=== PATIENT | female | born 1945 | race Caucasian/White ===

== ENCOUNTER 2020-08-22 07:52 | Outpatient (REF) | payer MEDICARE, OTHER, SELFPAY ==
[2020-08-22 08:36] LABS: MANUAL DIFF FLAG NO
[2020-08-22 08:46] LABS: Basophils Percent Auto 0.4 % (0-2); Eosinophils Absolute Auto 0.3 X10*3/uL (0.0-0.4); Hematocrit 36.7 % (37-47); Hemoglobin 11.7 g/dl (12.0-16.0); Imm Gran Abs Auto 0.04 X10*3/uL (0.00-0.03); Imm Gran Pct Auto 0.5 % (0.0-0.4); Lymphocytes Absolute Auto 1.7 X10*3/uL (1.2-4.9); Lymphocytes Percent Auto 21.6 % (20-40); Mean Corpuscular HGB Conc 31.9 g/dl (31.0-35.0); Mean Corpuscular Hemoglobin 28.3 pg (27.0-33.0); Mean Corpuscular Volume 88.9 fL (80-98); Mean Platelet Volume 9.8 fL (9.4-12.3); Monocytes Absolute Auto 0.9 X10*3/uL (0.1-1.2); Monocytes Percent Auto 11.2 % (2-11); Neutrophils Absolute Auto 4.9 X10*3/uL (2.0-8.3); Neutrophils Percent Auto 62.3 % (45-73); Platelet Count 321 X10*3/uL (160-400); Red Blood Count 4.13 X10*6/uL (4.20-5.50); Red Cell Distribution Width 15.3 % (11.0-16.0); White Blood Count 7.8 X10*3/uL (4.8-10.8)
[2020-08-22 09:10] LABS: Estimated Average Glucose 126 mg/dL
[2020-08-22 09:13] LABS: Alanine Aminotransferase 18 U/L (0-31); Anion Gap 13 (12-20); Blood Urea Nitrogen 31 mg/dL (9-16); Carbon Dioxide 27 mmol/L (22-29); Chloride 105 mmol/L (96-108); Estimated Glomerular Filt Rate 35; Glucose Fasting 114 mg/dL (60-99); Iron 47 mcg/dL (30-160); Percent Iron Saturation 15 % (15-50); Potassium 4.5 mmol/l (3.3-5.1); Sodium 140 mmol/L (135-145); Total Iron Binding Capacity 308 mcg/dL (228-428); Unsaturated Iron Binding 261 ug/dL
== END 2020-08-22 07:53 | disposition home or self-care (01) ==
LOC: HO.LAB 07:52
PROVIDERS: PCP Family Medicine; Visit Provider Family Medicine
DX: E11.9 Type 2 diabetes mellitus without complications (principal); I10 Essential (primary) hypertension; D50.9 Iron deficiency anemia, unspecified
CPT/HCPCS: 36415; 80051; 82565; 82947; 83036; 83540; 84460; 84520; 85025

== ENCOUNTER 2021-01-27 07:57 | Outpatient (REF) | payer MEDICARE, OTHER, SELFPAY ==
[2021-01-27 10:16] LABS: MANUAL DIFF FLAG NO
[2021-01-27 10:19] LABS: Basophils Absolute Auto 0.1 X10*3/uL (0.0-0.2); Basophils Percent Auto 0.8 % (0-2); Eosinophils Absolute Auto 0.4 X10*3/uL (0.0-0.4); Eosinophils Percent Auto 4.4 % (0-4); Hematocrit 36.6 % (37-47); Hemoglobin 11.7 g/dl (12.0-16.0); Imm Gran Abs Auto 0.02 X10*3/uL (0.00-0.03); Imm Gran Pct Auto 0.3 % (0.0-0.4); Lymphocytes Absolute Auto 1.8 X10*3/uL (1.2-4.9); Lymphocytes Percent Auto 22.5 % (20-40); Mean Corpuscular Hemoglobin 27.5 pg (27.0-33.0); Mean Corpuscular Volume 86.1 fL (80-98); Mean Platelet Volume 10.1 fL (9.4-12.3); Monocytes Absolute Auto 0.9 X10*3/uL (0.1-1.2); Monocytes Percent Auto 10.8 % (2-11); Neutrophils Absolute Auto 4.9 X10*3/uL (2.0-8.3); Neutrophils Percent Auto 61.2 % (45-73); Platelet Count 322 X10*3/uL (160-400); Red Blood Count 4.25 X10*6/uL (4.20-5.50); Red Cell Distribution Width 15.6 % (11.0-16.0)
[2021-01-27 10:32] LABS: Estimated Average Glucose 131 mg/dL; Hemoglobin A1c % 6.2 %
[2021-01-27 10:54] LABS: Anion Gap 14 (12-20); Blood Urea Nitrogen 23 mg/dL (9-16); Carbon Dioxide 27 mmol/L (22-29); Chloride 104 mmol/L (96-108); Estimated Glomerular Filt Rate 34; Glucose Fasting 110 mg/dL (60-99); Iron 50 mcg/dL (30-160); Percent Iron Saturation 16 % (15-50); Potassium 4.5 mmol/L (3.3-5.1); Sodium 140 mmol/L (135-145); Total Iron Binding Capacity 313 mcg/dL (228-428); Unsaturated Iron Binding 263 ug/dL
[2021-01-27 11:07] LABS: Free T4 (Free Thyroxine) 0.92 ng/dL (0.71-1.85)
== END 2021-01-27 07:58 | disposition home or self-care (01) ==
LOC: HO.10HDL 07:57
PROVIDERS: Visit Provider Family Medicine
DX: I10 Essential (primary) hypertension (principal); E11.9 Type 2 diabetes mellitus without complications; D50.9 Iron deficiency anemia, unspecified
CPT/HCPCS: 36415; 80051; 82565; 82947; 83036; 83540; 84439; 84520; 85025

== ENCOUNTER → 2021-05-11 14:23 | Outpatient (BNVA) | payer MEDICARE, OTHER, SELFPAY | PROVIDERS: PCP Family Medicine; Visit Provider Urology | DX: N20.0 Calculus of kidney (principal); N32.81 Overactive bladder | CPT/HCPCS: 51798; 99212 ==

== ENCOUNTER 2021-06-12 10:13 | Outpatient (REF) | payer MEDICARE, OTHER, SELFPAY ==
--- NOTE | ~2021-06-12 | US_ITS ---
EXAMINATION: US RETROPERITONEAL LIMITED (RENAL ONLY) CLINICAL INFORMATION: Calculus of kidney. COMPARISON: Renals only ultrasound dated 11/23/2019 and 08/04/2018. KUB is dated 04/01/2019 and 03/18/2019. CT abdomen and pelvis without contrast dated 01/05/2019. TECHNIQUE: Real-time imaging of the kidneys. FINDINGS: RIGHT KIDNEY: 10.7 x 4.3 x 4.7 cm (SAG x AP x TRV). The kidney is normal in size, contour, and echogenicity. Renal cortical thickness is normal. There is a 2 x 1.6 x 1.9 cm peripelvic cyst in the lower pole. No renal calculi or hydronephrosis. LEFT KIDNEY: 8.9 x 3.4 x 3.4 cm (SAG x AP x TRV). There is left renal cortical thinning or scarring. There is a 1.1 x 0.9 x 1.3 cm cyst exophytic to the lateral midpole. No renal calculi or hydronephrosis. INCIDENTAL FINDING: There are gallstones in the gallbladder. US/US renal BI IMPRESSION: Small bilateral renal cysts. No stone or hydronephrosis is seen. Left renal cortical thinning or scarring.
== END 2021-06-12 10:14 | disposition home or self-care (01) ==
LOC: HO.US 10:13
PROVIDERS: PCP Family Medicine; Visit Provider Urology
DX: N20.0 Calculus of kidney (principal)
CPT/HCPCS: 76775

== ENCOUNTER → 2021-06-27 10:04 | Outpatient (BNVA) | payer MEDICARE, OTHER, SELFPAY | PROVIDERS: PCP Family Medicine | CPT/HCPCS: Q3014 ==

== ENCOUNTER → 2021-08-01 10:52 | Outpatient (BNVA) | payer MEDICARE, OTHER, SELFPAY | PROVIDERS: PCP Family Medicine | DX: N32.81 Overactive bladder (principal) | CPT/HCPCS: Q3014 ==

== ENCOUNTER 2021-08-03 08:41 | Outpatient (REF) | payer MEDICARE, OTHER, SELFPAY | END 2021-08-03 08:42 | disposition home or self-care (01) | LOC: HO.10HDL 08:41 | PROVIDERS: Nurse Practitioner Family | DX: I25.10 Atherosclerotic heart disease of native coronary artery without angina pectoris (principal) | CPT/HCPCS: 36415; 80048 ==

== ENCOUNTER 2021-08-04 13:04 | Outpatient (REF) | payer MEDICARE, OTHER, SELFPAY | END 2021-08-04 13:05 | disposition home or self-care (01) | LOC: HO.10HDLNP 13:04 | DX: N39.0 Urinary tract infection, site not specified (principal) | CPT/HCPCS: 87086 ==

== ENCOUNTER → 2021-09-29 10:51 | Outpatient (BNVA) | payer MEDICARE, OTHER, SELFPAY | DX: N32.81 Overactive bladder (principal) | CPT/HCPCS: Q3014 ==

== ENCOUNTER 2021-09-30 07:58 | Outpatient (REF) | payer MEDICARE, OTHER, SELFPAY ==
[2021-09-30 09:32] LABS: Anion Gap 13 (12-20); Blood Urea Nitrogen 28 mg/dL (9-16); Carbon Dioxide 27 mmol/L (22-29); Chloride 106 mmol/L (96-108); Estimated Glomerular Filt Rate 37; Glucose Fasting 112 mg/dL (60-99); Potassium 4.7 mmol/L (3.3-5.1); Sodium 141 mmol/L (135-145)
[2021-09-30 09:39] LABS: Estimated Average Glucose 123 mg/dL; Hemoglobin A1c % 5.9 %
[2021-09-30 12:06] LABS: Creatinine Urine 84.67 mg/dL; Microalbum/Creatinine Ratio Ur 125.1 ug/mg cr
== END 2021-09-30 07:59 | disposition home or self-care (01) ==
LOC: HO.LAB 07:58
PROVIDERS: PCP Family Medicine; Visit Provider Family Medicine
DX: N39.0 Urinary tract infection, site not specified (principal); I10 Essential (primary) hypertension; E11.9 Type 2 diabetes mellitus without complications
CPT/HCPCS: 36415; 80051; 82043; 82565; 82947; 83036; 84520; 87086

== ENCOUNTER 2021-10-05 11:19 | Outpatient (REF) | payer MEDICARE, OTHER, SELFPAY ==
[2021-10-05 14:44] LABS: Free T4 (Free Thyroxine) 0.87 ng/dL (0.71-1.85); Thyroid Stimulating Hormone 2.37 uIU/mL (0.32-4.0)
== END 2021-10-05 11:20 | disposition home or self-care (01) ==
LOC: HO.10HDL 11:19
PROVIDERS: Visit Provider Family Medicine
DX: E03.9 Hypothyroidism, unspecified (principal)
CPT/HCPCS: 36415; 84439; 84443

== ENCOUNTER 2021-10-17 08:55 | Outpatient (REF) | payer MEDICARE, OTHER, SELFPAY ==
[2021-10-17 10:34] LABS: Appearance Urine TURBID; Color Urine YELLOW; Glucose Urine UA NEG (NEG); Leukocyte Esterase Urine 2+ (NEG); Nitrite Urine NEG (NEG); UACC Culture Trigger YES; Urine Blood 1+ (NEG); Urine Ketones NEG (NEG); Urine Protein 1+ MG/DL (NEG-TRACE)
[2021-10-17 10:52] LABS: Bacteria Urine 1+ /LPF; Squamous Epithelial Cell Urine 3+ /LPF; WBC Urine TNTC /HPF (0-4)
== END 2021-10-17 08:56 | disposition home or self-care (01) ==
LOC: HO.10HDL 08:55
PROVIDERS: Visit Provider Family Medicine
DX: N39.0 Urinary tract infection, site not specified (principal)
CPT/HCPCS: 81001; 87086

== ENCOUNTER → 2021-12-22 10:29 | Outpatient (BNVA) | payer MEDICARE, OTHER, SELFPAY | DX: N32.81 Overactive bladder (principal) | CPT/HCPCS: Q3014 ==

== ENCOUNTER 2022-02-16 07:43 | Outpatient (REF) | payer MEDICARE, OTHER, SELFPAY ==
--- NOTE | ~2022-02-16 | XR_ITS ---
EXAMINATION: XR chest 2V CLINICAL INFORMATION: Reason for Exam SOB,COPD COMPARISON: Chest radiograph 07/10/2016 TECHNIQUE: 2 views of the chest XR/XR chest 2V FINDINGS/IMPRESSION: Nodular opacities overlying the lung bases relatively symmetrically, which may reflect nipple shadows, however repeat radiographs with nipple markers to ensure these do not reflect pulmonary nodule. No pneumothorax. No pleural effusion. Normal cardiomediastinal silhouette.
--- NOTE | ~2022-02-16 | XR_ITS ---
EXAMINATION: XR lumbar spine 2-3V CLINICAL INFORMATION: Reason for Exam LO BACK PAIN COMPARISON: Lumbar spine radiographs 11/25/2018 TECHNIQUE: 3 views of the lumbar spine XR/XR lumbar spine 2-3V FINDINGS/IMPRESSION: 5 nonrib-bearing lumbar-type vertebral bodies. Vertebral body heights are maintained. Levoconvex curvature of the lumbar spine. Grade 1 retrolisthesis of L2 on L3 and L3 on L4. Advanced degenerative disc disease at L2-L3 and L3-L4 similar to prior. Paravertebral soft tissues are unremarkable. Partially imaged right hip arthroplasty. Partially imaged advanced degenerative changes of the left hip with complete loss of joint space.
[2022-02-16 07:56] LABS: MANUAL DIFF FLAG NO
[2022-02-16 08:30] LABS: Basophils Absolute Auto 0.1 X10*3/uL (0.0-0.2); Basophils Percent Auto 0.6 % (0-2); Eosinophils Absolute Auto 0.4 X10*3/uL (0.0-0.4); Eosinophils Percent Auto 4.8 % (0-4); Hematocrit 38.5 % (37.0-47.0); Hemoglobin 12.1 g/dl (12.0-16.0); Imm Gran Abs Auto 0.03 X10*3/uL (0.00-0.03); Imm Gran Pct Auto 0.4 % (0.0-0.4); Lymphocytes Absolute Auto 1.8 X10*3/uL (1.2-4.9); Lymphocytes Percent Auto 23.9 % (20-40); Mean Corpuscular HGB Conc 31.4 g/dl (31.0-35.0); Mean Corpuscular Hemoglobin 27.8 pg (27.0-33.0); Mean Corpuscular Volume 88.3 fL (80.0-98.0); Mean Platelet Volume 10.3 fL (9.4-12.3); Neutrophils Absolute Auto 4.4 x10*3/uL (2.0-8.3); Neutrophils Percent Auto 57.3 % (45-73); Platelet Count 310 X10*3/uL (160-400); Red Blood Count 4.36 X10*6/uL (4.20-5.50); White Blood Count 7.7 X10*3/uL (4.8-10.8)
[2022-02-16 08:53] LABS: Alanine Aminotransferase 29 U/L (0-31); Alkaline Phosphatase 104 U/L (39-117); Anion Gap 14 (12-20); Aspartate Amino Transferase 17 U/L (5-31); Blood Urea Nitrogen 22 mg/dL (9-16); Calcium 9.3 mg/dL (8.4-10.2); Carbon Dioxide 27 mmol/L (22-29); Chloride 105 mmol/L (96-108); Estimated Glomerular Filt Rate 28; Glucose Random 106 mg/dL (60-115); Potassium 4.6 mmol/L (3.3-5.1); Sodium 141 mmol/L (135-145); Total Protein 7.2 g/dL (6.5-8.0)
[2022-02-16 09:09] LABS: Erythrocyte Sedimentation Rate 62 MM/HR (0-20)
[2022-02-16 09:28] LABS: Ferritin 105 ng/mL (10-250); Free T4 (Free Thyroxine) 0.89 ng/dL (0.71-1.85)
[2022-02-17 14:35] LABS: Anti Nuclear Antibody Screen NEGATIVE (NEGATIVE)
== END 2022-02-16 07:44 | disposition home or self-care (01) ==
LOC: HO.LAB 07:43
PROVIDERS: PCP Family Medicine; Visit Provider Family Medicine
DX: M54.50 Low back pain, unspecified (principal); J44.9 Chronic obstructive pulmonary disease, unspecified; R06.02 Shortness of breath; R53.83 Other fatigue; R63.4 Abnormal weight loss
CPT/HCPCS: 36415; 71046; 72100; 80053; 82378; 82728; 84439; 85025; 85652; 86038; 86039

== ENCOUNTER 2022-02-26 09:38 | Outpatient (REF) | payer MEDICARE, OTHER, SELFPAY ==
--- NOTE | ~2022-02-26 | CT_ITS ---
EXAMINATION: CT ABDOMEN WITHOUT CONTRAST CLINICAL INFORMATION: Weakness, constipation, pain and chronic kidney disease. Rule out abdominal mass. COMPARISON: Previous CT of the abdomen and pelvis, most recent December 2020 and renal ultrasound May 2021. TECHNIQUE: Contiguous axial thin section helical images of the abdomen were performed without contrast. The data set was reformatted in the coronal and sagittal planes and reviewed on an independent workstation. This CT examination was performed using dose optimization techniques as appropriate, variously including the following: *Automated exposure control *Adjustment of mA and/or kV according to patient size (this includes techniques or standardized protocols for targeted exams where dose is matched to indication/reason for exam; i.e. extremities or head) *Use of iterative reconstruction technique DLP: 174 mGy-cm. FINDINGS: LUNG BASES: There is a 1 cm right lower lobe nodule that is stable. The lung bases are otherwise clear. LIVER, GALLBLADDER, BILIARY TREE: The liver is normal appearing. There is a gallstone in the gallbladder. There is no biliary duct dilatation. PANCREAS: Normal. SPLEEN: Normal. ADRENAL GLANDS AND KIDNEYS: The left kidney is smaller than the right. The left kidney measures 6 cm and the right 10 cm in length. There is left renal cortical thinning. There is a 1 cm low-attenuation lesion in the lateral lower left kidney probably representing a cyst that is stable. There is no left hydronephrosis. There is a tiny stone in the upper pole of the right kidney. There is mild right hydronephrosis. Right ureter does not appear dilated and this may represent a mild right UPJ obstruction. This is similar to previous exams. BOWEL LOOPS: There is stool throughout the colon. There is question of wall thickening or possible mass of the proximal right colon. This is seen on the most inferior image only. The visualized small bowel and the stomach appear unremarkable. LYMPH NODES: Normal. VASCULAR: There is evidence of atherosclerotic disease. No aneurysm is seen. BONES: There are degenerative changes of the spine. CT/CT abdomen wo con IMPRESSION: Small left kidney. Small left renal cyst. Small right renal stone. Mild right hydronephrosis. The right ureter does not appear dilated and this may represent mild right UPJ obstruction. This is similar to previous exams. Question wall thickening or possible mass of the proximal right colon on the most inferior image. Stool throughout the colon suggestive of constipation. Gallstone. Stable right lower lobe pulmonary nodule. Fleischner guidelines were followed.
[2022-02-26] MEDS: Barium Sulfate Oral (Vanilla) 450 ML ORAL.SUSP PO (11:27)
== END 2022-02-26 09:39 | disposition home or self-care (01) ==
LOC: HO.CT 09:38
PROVIDERS: Visit Provider Family Medicine
DX: R53.1 Weakness (principal); K59.00 Constipation, unspecified; N18.9 Chronic kidney disease, unspecified; R10.9 Unspecified abdominal pain
CPT/HCPCS: 74150

== ENCOUNTER → 2022-03-19 14:13 | Outpatient (BNVA) | payer MEDICARE, OTHER, SELFPAY | PROVIDERS: PCP Family Medicine; Visit Provider Internal Medicine Gastroenterology | DX: C18.2 Malignant neoplasm of ascending colon (principal) | CPT/HCPCS: 99202 ==

== ENCOUNTER 2022-03-27 10:00 | Outpatient (RCR) | payer MEDICARE, OTHER, SELFPAY ==
--- NOTE | 2022-02-22 12:29 | MHC.PT.EP ---
[facility] [place] Office [place] Office [place] Office [address] Tarah Gayle [address] [phone] F: [phone] F: [phone] F: [phone] F: [phone] Physical Therapy Plan of Care Date of Evaluation: 02/22/22 Date of Surgery: Diagnosis: overactive bladder Assessment: The patient arrived with poor slouched posture, painful movement patterns, and c/o urgency and frequency. She deferred internal exam until next visit. I educated her on what can be found in the pelvic floor. I recommended we begin a bladder log to measure output and look at potential bladder irritants. The patient is showing signs of sinister pathology including back pain, night pain, constant intense new onset of without injury, loss of appetite, feeling fatigued. She has a CT scan on Saturday of her abdomen. I suspect pt has high resting tone layered with PFM weakness, which I will assess next visit. Today I instructed on improving sitting, sleeping, and movement postures to accommodate her pain. Frequency and Duration: The patient will be seen 1x/week x 4 weeks. Short Term Goals: 1. PT to be educated on proper sitting, sleeping posture for pain control 2. Pt to be educated on diaphragmatic breathing Mcfp Goals: 1. Pt to be able to reduce nocturia to less than 5 times/nigh to allow improved sleep 2 Pt to be able to record a bladder log to look for patterns, or triggers for bladder irritation at night. Treatment Plan: Modalities to reduce pain, spasms and effusion. Manual therapy to restore motion and function. Therapeutic exercise to improve strength and flexibility. Neuromuscular re-education for posture and balance. Therapeutic activities to return to functional activities of daily living. Electronically signed by: Charlette Yoder PT DPT Please sign and return to therapist. Thank you for your referral.
== END 2022-06-22 14:52 | disposition home or self-care (01) ==
LOC: HO.PT 10:00
DX: N32.81 Overactive bladder (principal)
CPT/HCPCS: 97112; 97162; 97530

== ENCOUNTER 2022-04-09 07:51 | Day surgery (SDC) | payer MEDICARE, OTHER, SELFPAY ==
[2022-04-04 08:31] VITALS: BMI 23.6
--- NOTE | 2022-04-06 12:57 | HO.ANESPROP2 ---
Documented by User: Gala Carter NP 04/06/22 12:59 HPI - Anesthesia Eval Consult details Narrative: 76yo F for Colonoscopy *Mult med allergies* PMFSH Active Problems Active Problems: All Active Problems (Updated 03/20/22 @ 15:48 by BONNIE Pendleton) Malignant neoplasm of right colon (Acute) Cognitive decline (Acute) UTI (urinary tract infection) (Acute) Renal stones (Acute) Overactive bladder (Acute) Past Medical History Medical History (Updated 04/09/22 @ 08:20 by Vanessa Calle RN) Acute inflammatory neuropathy Anxiety CHF (congestive heart failure) Cognitive decline Constipation Degenerative disc disease Depression Gastritis GERD (gastroesophageal reflux disease) Hypertension Myocardial infarct OA (osteoarthritis) Overactive bladder Panic attack Renal stones Thyroid disease Type 2 diabetes mellitus without complication, without long-term current use of insulin UTI (urinary tract infection) Family History Family History (Updated 03/19/22 @ 14:15 by BONNIE ePndleton) Mother Heart problem Maternal Aunt Heart problem Maternal Aunt Heart problem Other Diabetes Surgical History Surgical History (Updated 04/09/22 @ 08:56 by Vanessa Calle RN) History of cardiac cath History of esophagogastroduodenoscopy (EGD) History of total right hip replacement Hx of cataract extraction Hx of colonoscopy Hx of cystoscopy Hx of lithotripsy Social History Social History Patient Tobacco Use Status: Never used Tobacco Use of substances other than those prescribed or required for medical reasons: No Are you DNR?: Yes Advance Directives: No Advance Directives Information Provided: Yes Recently lost weight without trying: No How much weight loss: 2-13 pounds Nutrition Risks: No Nutritional Risk Meds Allergies Allergy/AdvReac Type Severity Reaction Status Date / Time amoxicillin [Augmentin] Allergy Intermediate rash Verified 04/04/22 08:29 azithromycin [From ZITHROMAX] Allergy Intermediate RASH, Verified 03/19/22 14:14 rash, confusion clarithromycin [From BIAXIN] Allergy Intermediate RASH Verified 03/19/22 14:14 clavulanic acid [Augmentin] Allergy Intermediate rash Verified 04/04/22 08:29 nitrofurantoin Allergy Intermediate ITCHY/RASH Verified 03/19/22 14:14 [From MACROBID] Sulfa (Sulfonamide Allergy Intermediate Rash Verified 04/04/22 08:29 Antibiotics) [SULFA (SULFONAMIDE ANTIBIOTICS)] trimethoprim [From BACTRIM] Allergy Intermediate RASH Verified 03/19/22 14:14 chlorzoxazone Allergy Unknown UNKNOWN Verified 03/19/22 14:14 [From PARAFON FORTE DSC] levofloxacin [From LEVAQUIN] Allergy Unknown UNKNOWN Verified 03/19/22 14:14 From LEXAPRO Allergy Unknown UNKNOWN Uncoded 03/19/22 14:14 Home Medications Medication Instructions Recorded Confirmed Last Taken Type amlodipine 5 mg tablet 5 mg PO DAILY 08/01/21 Unknown History blood sugar diagnostic (OneTouch #10 ea 08/01/21 Unknown History Verio test strips) levothyroxine 150 mcg tablet 150 mcg PO DAILY 08/01/21 Unknown History metoprolol tartrate 25 mg tablet 25 mg PO BID 08/01/21 Unknown History bupropion HCl 150 mg 24 hr tablet, 150 mg PO QAM 12/22/21 Unknown History extended release gabapentin 100 mg capsule 200 mg PO BEDTIME 12/22/21 Unknown History meloxicam 7.5 mg tablet 7.5 mg PO DAILY 03/19/22 Unknown History polyethylene glycol 3350 17 17 g PO DAILY PRN 03/19/22 Unknown History gram/dose oral powder (Miralax) Exam Exam Date and Time: April 06, 2022 1257 Height,Weight and Vital Signs: Height 5 ft 6 in Weight 66.224 kg Pertinent Lab Results Pertinent Lab Results: Laboratory Tests 02/16/22 02/16/22 07:55 07:55 WBC 7.7 Hgb 12.1 Hct 38.5 Plt Count 310 Sodium 141 Potassium 4.6 Chloride 105 Carbon Dioxide 27 BUN 22 H Creatinine 1.77 H Assessment and Plan Assessment Anesthesia Assessment: Chart Reviewed Documented by User: Nicky Rojas MD 04/09/22 09:08 [facility] Past Medical History Medical History (Updated 04/09/22 @ 08:20 by Vanessa Calle RN) Acute inflammatory neuropathy Anxiety CHF (congestive heart failure) Cognitive decline Constipation Degenerative disc disease Depression Gastritis GERD (gastroesophageal reflux disease) Hypertension Myocardial infarct OA (osteoarthritis) Overactive bladder Panic attack Renal stones Thyroid disease Type 2 diabetes mellitus without complication, without long-term current use of insulin UTI (urinary tract infection) Family History Family History (Updated 03/19/22 @ 14:15 by BONNIE Pendleton) Mother Heart problem Maternal Aunt Heart problem Maternal Aunt Heart problem Other Diabetes Family history of problems with anesthesia: No Surgical History Surgical History (Updated 04/09/22 @ 08:56 by Vanessa Calle RN) History of cardiac cath History of esophagogastroduodenoscopy (EGD) History of total right hip replacement Hx of cataract extraction Hx of colonoscopy Hx of cystoscopy Hx of lithotripsy History of Problems with Anesthesia: No Social History Social History Patient Tobacco Use Status: Never used Tobacco Use of substances other than those prescribed or required for medical reasons: No Are you DNR?: Yes Advance Directives: No Advance Directives Information Provided: Yes Recently lost weight without trying: No How much weight loss: 2-13 pounds Nutrition Risks: No Nutritional Risk Meds Allergies Allergy/AdvReac Type Severity Reaction Status Date / Time amoxicillin [Augmentin] Allergy Intermediate rash Verified 04/04/22 08:29 azithromycin [From ZITHROMAX] Allergy Intermediate RASH, Verified 03/19/22 14:14 rash, confusion clarithromycin [From BIAXIN] Allergy Intermediate RASH Verified 03/19/22 14:14 clavulanic acid [Augmentin] Allergy Intermediate rash Verified 04/04/22 08:29 nitrofurantoin Allergy Intermediate ITCHY/RASH Verified 03/19/22 14:14 [From MACROBID] Sulfa (Sulfonamide Allergy Intermediate Rash Verified 04/04/22 08:29 Antibiotics) [SULFA (SULFONAMIDE ANTIBIOTICS)] trimethoprim [From BACTRIM] Allergy Intermediate RASH Verified 03/19/22 14:14 chlorzoxazone Allergy Unknown UNKNOWN Verified 03/19/22 14:14 [From PARAFON FORTE DSC] levofloxacin [From LEVAQUIN] Allergy Unknown UNKNOWN Verified 03/19/22 14:14 From LEXAPRO Allergy Unknown UNKNOWN Uncoded 03/19/22 14:14 Home Medications Medication Instructions Recorded Confirmed Last Taken Type amlodipine 5 mg tablet 5 mg PO DAILY 08/01/21 Unknown History blood sugar diagnostic (OneTouch #10 ea 08/01/21 Unknown History Verio test strips) levothyroxine 150 mcg tablet 150 mcg PO DAILY 08/01/21 Unknown History metoprolol tartrate 25 mg tablet 25 mg PO BID 08/01/21 Unknown History bupropion HCl 150 mg 24 hr tablet, 150 mg PO QAM 12/22/21 Unknown History extended release gabapentin 100 mg capsule 200 mg PO BEDTIME 12/22/21 Unknown History meloxicam 7.5 mg tablet 7.5 mg PO DAILY 03/19/22 Unknown History polyethylene glycol 3350 17 17 g PO DAILY PRN 03/19/22 Unknown History gram/dose oral powder (Miralax) Exam Airway Mallampati Class: II TM Dist: >3cm Neck ROM: Full Heart: rrr Lungs: cta Assessment and Plan Assessment Anesthesia Assessment: Anesthesia Plan Discussed Final Anesthetic Review Family History of Problems with Anesthesia: No History of Problems with Anesthesia: No NPO: Yes ASA Class: III Final Preanesthetic Review: No Changes in Pt Med Stat, Meds/Allgs Chart Reviewed and Consent Obtained/Reviewed Patient Risk: Intermediate Procedure Risk: Intermediate Anesthetic Plan Anesthetic Plan: MAC: Disposition: Standard PACU
[2022-04-09 08:21] VITALS: BMI 25.5
--- NOTE | 2022-04-09 08:36 | MHC.SHP ---
Pre-Procedural Eval Section A Date of Service: 04/09/22 The patient is an INPATIENT: No Changes since office visit: Yes Patient answered all questions; No Cold of Flu in the past 2 weeks, No New Medical Problems and No Changes in Medication The History & Physical has been completed within 30 days and I have reviewed it.: Yes Section B Chief Complaint: abnormal CT scan of the colon Details of Present Illness: abnormal CT scan of the colon Allergies: Allergies Allergy/AdvReac Type Severity Reaction Status Date / Time amoxicillin [Augmentin] Allergy Intermediate rash Verified 04/04/22 08:29 azithromycin [From ZITHROMAX] Allergy Intermediate RASH, Verified 03/19/22 14:14 rash, confusion clarithromycin [From BIAXIN] Allergy Intermediate RASH Verified 03/19/22 14:14 clavulanic acid [Augmentin] Allergy Intermediate rash Verified 04/04/22 08:29 nitrofurantoin Allergy Intermediate ITCHY/RASH Verified 03/19/22 14:14 [From MACROBID] Sulfa (Sulfonamide Allergy Intermediate Rash Verified 04/04/22 08:29 Antibiotics) [SULFA (SULFONAMIDE ANTIBIOTICS)] trimethoprim [From BACTRIM] Allergy Intermediate RASH Verified 03/19/22 14:14 chlorzoxazone Allergy Unknown UNKNOWN Verified 03/19/22 14:14 [From PARAFON FORTE DSC] levofloxacin [From LEVAQUIN] Allergy Unknown UNKNOWN Verified 03/19/22 14:14 From LEXAPRO Allergy Unknown UNKNOWN Uncoded 03/19/22 14:14 Plan I have reviewed the history and physical and performed a pertinent physical examination on my patient. No changes have occurred unless specified.
[2022-04-09 08:57] VITALS: BP 179/84; PULSE 81; RESP 16; TEMP 36.4; O2SAT 99
--- NOTE | 2022-04-09 09:04 | W.PM.OPN ---
Operative Note Operative Note Date of Service: 04/09/22 Narrative: Pre-op diagnosis: abnormal CT scan of the colon Post-op diagnosis:?other (Prominent ileocecal valve, cecal AVM, diverticulosis, hemorrhoids) Procedure: COLONOSCOPY TILL CECUM WITH BIOPSIES AND APC OF CECAL AVMS Consent: Indications for the procedure and potential complications of bleeding, perforation, reaction to medications and missed diagnosis were discussed with the patient and informed consent was obtained. Instrument: Olympus PCF H 190 L variable stiffness pediatric colonoscope Monitoring: Vital signs and clinical assessment, intermittent blood pressure monitoring, continuous EKG monitoring, Pulse oximetry and Carbon Dioxide monitoring were done throughout the procedure. Colon withdrawl time was 20 minutes. Procedure: The patient was placed in the left lateral decubitis position and pre-procedure medications were administered. After a digital rectal examination of the ano-rectum, the video colonoscope was inserted into the rectum and advanced through the colon to the cecum. The colonoscope was slowly withdrawn in a retrograde panoramic fashion and the colon mucosa was carefully examined including a retroflexed view of the rectum. Findings and interventions are described below. Procedure Difficulty: Without difficulty Findings: Terminal Ileum:? Distal 7-8 cm was examined and appeared normal. Cecum:? 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 Prominent ICV valve without clear adenomatous change - multiple biopsies were obtained. Ascending Colon:? Examined with multiple passes of the scope and appeared normal Transverse Colon:? Normal Descending Colon:? Moderate diverticulosis Sigmoid Colon:? Severe diverticulosis with luminal narrowing Rectum:? Normal Ano-rectum:? Moderate internal hemorrhoids Colon preparation:? Good? 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 Prominent ICV valve without clear adenomatous change - multiple biopsies were obtained. No polyps were detected Moderate diverticulosis seen in the left colon Moderate hemorrhoids on retroflexed exam. Plan: Await pathology results Patient has an appointment on 06/01/22 in the [facility] with Dr Rios. Repeat Colonoscopy interval based on path results - in 3-5 years if polyps are adenomatous and 10 years if polyps are hyperplastic. Diverticulosis handout was given in the discharge area. Pt's daughter was called x 2 at patient's request to review colonoscopy results and LMTCB Surgeon: Ciera Fletcher MD Anesthesia:?MAC (DR Robledo) Was an Polysomnographic Tech used for this Procedure?:?No Polysomnographic Tech:?Anushka Gay Estimated blood loss (mL):?0 Pathology:?other ( A. ileocecal valve bxs) Condition:?stable Disposition:?PACU
[2022-04-09 09:06] LABS: Glucose, Whole Blood 117 mg/dL (60-115)
[2022-04-09] MEDS: Lactated Ringers 1,000 ML 100 ML IVCONT (09:12)
[2022-04-09 09:49] VITALS: BP 133/60; PULSE 66; RESP 16; TEMP 36.2; O2SAT 99
[2022-04-09 10:04] VITALS: BP 153/69; PULSE 73; RESP 16; TEMP 36.2; O2SAT 97
== END 2022-04-09 10:54 | disposition home or self-care (01) ==
PROVIDERS: PCP Family Medicine; Visit Provider Internal Medicine Gastroenterology
PROC: 0DJD8ZZ Inspection of Lower Intestinal Tract, Via Natural or Artificial Opening Endoscopic (ICD-10-PCS; CPT 45378; principal; 2022-04-09 09:20)
DX: C18.2 Malignant neoplasm of ascending colon (principal); R97.0 Elevated carcinoembryonic antigen [CEA]; K55.21 Angiodysplasia of colon with hemorrhage; K63.89 Other specified diseases of intestine; K57.30 Diverticulosis of large intestine without perforation or abscess without bleeding; K64.8 Other hemorrhoids; K21.9 Gastro-esophageal reflux disease without esophagitis; I50.9 Heart failure, unspecified; I25.2 Old myocardial infarction; I51.81 Takotsubo syndrome; N32.81 Overactive bladder; E11.9 Type 2 diabetes mellitus without complications; R41.81 Age-related cognitive decline; Z79.84 Long term (current) use of oral hypoglycemic drugs; Z87.442 Personal history of urinary calculi; Z88.0 Allergy status to penicillin; Z88.1 Allergy status to other antibiotic agents; Z88.2 Allergy status to sulfonamides
CPT/HCPCS: 45380; 45382; 82947; 88305

== ENCOUNTER → 2022-05-28 09:24 | Outpatient (BNVA) | payer MEDICARE, OTHER, SELFPAY | PROVIDERS: PCP Family Medicine; Visit Provider Surgery | DX: M00.9 Pyogenic arthritis, unspecified (principal); Z96.652 Presence of left artificial knee joint | CPT/HCPCS: 99202 ==

== ENCOUNTER → 2022-06-01 08:28 | Outpatient (BNVA) | payer MEDICARE, OTHER, SELFPAY | PROVIDERS: PCP Ophthalmology Retina Specialist; Visit Provider Internal Medicine Gastroenterology | DX: K52.82 Eosinophilic colitis (principal) | CPT/HCPCS: Q3014 ==

== ENCOUNTER 2022-06-13 08:26 | Outpatient (REF) | payer MEDICARE, OTHER, SELFPAY ==
[2022-06-13 10:22] LABS: MANUAL DIFF FLAG NO
[2022-06-13 10:31] LABS: Basophils Absolute Auto 0.1 X10*3/uL (0.0-0.2); Basophils Percent Auto 0.9 % (0-2); Eosinophils Absolute Auto 0.7 X10*3/uL (0.0-0.4); Eosinophils Percent Auto 10.6 % (0-4); Hematocrit 35.2 % (37.0-47.0); Hemoglobin 11.2 g/dl (12.0-16.0); Imm Gran Abs Auto 0.02 X10*3/uL (0.00-0.03); Imm Gran Pct Auto 0.3 % (0.0-0.4); Lymphocytes Absolute Auto 1.7 X10*3/uL (1.2-4.9); Lymphocytes Percent Auto 25.3 % (20-40); Mean Corpuscular HGB Conc 31.8 g/dl (31.0-35.0); Mean Corpuscular Hemoglobin 28.3 pg (27.0-33.0); Mean Corpuscular Volume 88.9 fL (80.0-98.0); Mean Platelet Volume 10.1 fL (9.4-12.3); Monocytes Absolute Auto 0.8 X10*3/uL (0.1-1.2); Monocytes Percent Auto 11.5 % (2-11); Neutrophils Absolute Auto 3.4 x10*3/uL (2.0-8.3); Neutrophils Percent Auto 51.4 % (45-73); Platelet Count 311 X10*3/uL (160-400); Red Blood Count 3.96 X10*6/uL (4.20-5.50); Red Cell Distribution Width 14.7 % (11.0-16.0); White Blood Count 6.5 X10*3/uL (4.8-10.8)
[2022-06-13 10:59] LABS: Alanine Aminotransferase 21 U/L (0-31); Albumin Level 3.9 g/dL (3.5-5.0); Alkaline Phosphatase 87 U/L (39-117); Anion Gap 13 (12-20); Aspartate Amino Transferase 17 U/L (5-31); Bilirubin Total 0.7 mg/dL (0.0-1.0); Blood Urea Nitrogen 22 mg/dL (9-16); Calcium 8.8 mg/dL (8.4-10.2); Carbon Dioxide 24 mmol/L (22-29); Chloride 108 mmol/L (96-108); Estimated Glomerular Filt Rate 32; Glucose Random 125 mg/dL (60-115); Potassium 4.2 mmol/L (3.3-5.1); Sodium 141 mmol/L (135-145); Total Protein 6.9 g/dL (6.5-8.0)
[2022-06-13 11:09] LABS: Erythrocyte Sedimentation Rate 59 MM/HR (0-20)
[2022-06-13 11:12] LABS: Free T4 (Free Thyroxine) 1.02 ng/dL (0.71-1.85)
== END 2022-06-13 08:27 | disposition home or self-care (01) ==
LOC: HO.10HDL 08:26
PROVIDERS: Visit Provider Family Medicine
DX: R53.83 Other fatigue (principal); E03.9 Hypothyroidism, unspecified; I10 Essential (primary) hypertension
CPT/HCPCS: 36415; 80053; 84439; 85025; 85652

== ENCOUNTER → 2022-06-27 13:54 | Outpatient (BNVA) | payer MEDICARE, OTHER, SELFPAY | PROVIDERS: PCP Family Medicine; Visit Provider Psychiatry & Neurology Neurology | DX: G47.00 Insomnia, unspecified (principal); R41.89 Other symptoms and signs involving cognitive functions and awareness; M19.90 Unspecified osteoarthritis, unspecified site; R52 Pain, unspecified; Z79.899 Other long term (current) drug therapy | CPT/HCPCS: 99202 ==

== ENCOUNTER 2022-07-04 08:19 | Outpatient (REF) | payer MEDICARE, OTHER, SELFPAY ==
--- NOTE | ~2022-07-04 | CT_ITS ---
EXAMINATION: CT HEAD WITHOUT CONTRAST CLINICAL INFORMATION: Signs and symptoms or abnormal cognitive function and awareness COMPARISON: None TECHNIQUE: Contiguous axial imaging was performed from the skull base to vertex without intravenous administration of contrast. This CT examination was performed using dose optimization techniques as appropriate, variously including the following: *Automated exposure control *Adjustment of mA and/or kV according to patient size (this includes techniques or standardized protocols for targeted exams where dose is matched to indication/reason for exam; i.e. extremities or head) *Use of iterative reconstruction technique DLP: 620 mGy-cm FINDINGS: There is no evidence of acute intracranial hemorrhage or territorial infarction. No abnormal mass effect or midline shift is seen. Silver to white matter differentiation is well preserved. No extra-axial fluid collections are identified. The ventricles are normal in size. There is no abnormal attenuation within the brain parenchyma. The osseous structures and soft tissues are normal. The mastoid air cells and visualized portions of the paranasal sinuses are well aerated. CT/CT head/brain wo con IMPRESSION: No acute intracranial process seen.
[2022-07-04 10:13] LABS: Folate 5.7 ng/mL (> or = 4.0); Vitamin B12 305 pg/mL (200-900)
== END 2022-07-04 08:20 | disposition home or self-care (01) ==
LOC: HO.CT 08:19
PROVIDERS: PCP Family Medicine; Visit Provider Psychiatry & Neurology Neurology
DX: R41.89 Other symptoms and signs involving cognitive functions and awareness (principal)
CPT/HCPCS: 36415; 70450; 82607; 82746

== ENCOUNTER 2023-03-01 10:03 | Outpatient (REF) | payer MEDICARE, OTHER, SELFPAY ==
[2023-03-01 10:36] LABS: MANUAL DIFF FLAG NO
[2023-03-01 10:53] LABS: Basophils Absolute Auto 0.1 X10*3/uL (0.0-0.2); Basophils Percent Auto 0.8 % (0-2); Eosinophils Absolute Auto 0.3 X10*3/uL (0.0-0.4); Eosinophils Percent Auto 3.9 % (0-4); Hematocrit 37.9 % (37.0-47.0); Hemoglobin 12.1 g/dl (12.0-16.0); Imm Gran Abs Auto 0.02 X10*3/uL (0.00-0.03); Imm Gran Pct Auto 0.3 % (0.0-0.4); Lymphocytes Absolute Auto 1.8 X10*3/uL (1.2-4.9); Lymphocytes Percent Auto 24.2 % (20-40); Mean Corpuscular HGB Conc 31.9 g/dl (31.0-35.0); Mean Corpuscular Hemoglobin 28.4 pg (27.0-33.0); Mean Platelet Volume 9.6 fL (9.4-12.3); Monocytes Absolute Auto 0.8 X10*3/uL (0.1-1.2); Neutrophils Absolute Auto 4.4 x10*3/uL (2.0-8.3); Neutrophils Percent Auto 59.8 % (45-73); Platelet Count 329 X10*3/uL (160-400); Red Blood Count 4.26 X10*6/uL (4.20-5.50); Red Cell Distribution Width 14.8 % (11.0-16.0); White Blood Count 7.4 X10*3/uL (4.8-10.8)
[2023-03-01 11:24] LABS: Estimated Average Glucose 134 mg/dL; Hemoglobin A1C 149.6222 umol/L; Hemoglobin A1c % 6.3 %
[2023-03-01 11:39] LABS: Anion Gap 14 (12-20); Blood Urea Nitrogen 25 mg/dL (9-16); Carbon Dioxide 25 mmol/L (22-29); Chloride 107 mmol/L (96-108); Estimated Glomerular Filt Rate 25; Glucose Fasting 106 mg/dL (60-99); Iron 64 mcg/dL (30-160); Percent Iron Saturation 21 % (15-50); Sodium 141 mmol/L (135-145); Total Iron Binding Capacity 309 mcg/dL (228-428); Unsaturated Iron Binding 245 ug/dL
[2023-03-01 12:08] LABS: Free T4 (Free Thyroxine) 1.07 ng/dL (0.71-1.85)
== END 2023-03-01 10:04 | disposition home or self-care (01) ==
LOC: HO.10HDL 10:03
PROVIDERS: Visit Provider Family Medicine
DX: I10 Essential (primary) hypertension (principal); E11.9 Type 2 diabetes mellitus without complications; D50.9 Iron deficiency anemia, unspecified; E03.9 Hypothyroidism, unspecified
CPT/HCPCS: 36415; 80051; 82565; 82947; 83036; 83540; 84439; 84520; 85025

== ENCOUNTER → 2023-04-04 08:32 | Outpatient (REF) | payer MEDICARE, OTHER, SELFPAY ==
--- NOTE | 2023-04-04 08:38 | CA_ITS ---
Transthoracic Echocardiogram Patient (Last, First, Middle): Anastasiya Conner A Gender: Female Date of : 1945 Age: 77 Procedure Date: 04/04/2023 Procedure Type: Transthoracic Echocardiogram Location: OP Height: 162.56 cm Weight: 67.59 kg BSA: 1.73 m2 Heart Rate: 72 bpm BP: 155 / 80 mmHg Insole Department Worker: KATERINE Referring MD: Louis Barrow MD Symptoms: R06.02 SOB R01.1 CA MURMUR, WORSNING Study Quality: Fair ECG Rhythm: Arrhythmia Conclusions: - The left ventricular systolic function is normal. The calculated ejection fraction is 55% by biplane method. - E/E prime ratio is >15, consistent with elevated filling pressures. Evidence suggests grade I (mild) diastolic dysfunction. - There is mild to moderate aortic valve stenosis. - There is mild mitral annular calcification. Findings Left Ventricle Normal left ventricular cavity size. There is normal left ventricular wall thickness. The left ventricular systolic function is normal. The calculated ejection fraction is 55% by biplane method. There is no evidence of regional wall motion abnormalities. E/E prime ratio is >15, consistent with elevated filling pressures. Evidence suggests grade I (mild) diastolic dysfunction. Right Ventricle Normal right ventricular cavity size and systolic function. Atria The left atrium is mildly dilated. The right atrium is normal in size. Aortic Valve The aortic valve was not well visualized. There is moderate calcification of the aortic valve. There is mild to moderate aortic valve stenosis. The mean gradient is 11 mmHg. The aortic valve area is 1.40 cm2. There is trace (trivial) aortic valve regurgitation. Dimensionless index 0.4. Mitral Valve There is mild mitral annular calcification. There is trace mitral valve regurgitation. There is no mitral valve stenosis. Pulmonic Valve There is trace pulmonic valve regurgitation. Tricuspid Valve There is trace tricuspid valve regurgitation. There is no evidence of pulmonary hypertension. Great Vessels The asc aorta is normal in size. Venous The inferior vena cava is normal in size and collapses greater than 50% with inspiration. Pericardium/Pleural There is no evidence of pericardial effusion. Prior Study Comparison No significant change compared to prior study dated: 01/13/2018. Measurements 2D Linear Measurements IVSd: 0.59 0.6-0.9/0.6-1.0 cm LVIDd: 4.76 3.9-5.3/4.2-5.9 cm LVIDd Index: 2.75 2.4-3.2/2.2-3.1 cm/m2 LVIDs: 4.01 2.0-3.6 cm LVPWd: 0.89 0.7-1.1 cm LA Diam: 3.80 2.7-3.8/3.0-4.0 cm LAIDs Index: 2.20 1.5-2.3 cm/m2 LV Mass: 140.89 67-162/88-224 g LV Mass Index: 81.44 43-95/49-115 g/m2 LVOT Diam: 2.10 3.0+(-)1.3 cm 2D Systolic Function EF 4C: 50.60 >55% EF 2C: 59.40 >55% EF BiP: 54.60 >55% Mitral Valve MV Pk E: 1.07 MV PK A: 1.07 MV Decel Time: 191.00 E/A: 1.00 E'Lateral: 5.77 E'Medial: 6.09 E/E' Med: 17.60 E/E' Lat: 18.50 PHT: 56.00 MVA PHT: 3.93 Decel [place]: 5.59 Aortic Valve AoV Pk Chet: 2.19 AoV Mn Chet: 1.59 AoV VTI: 0.60 AoV Pk Grad: 19.00 Aov Mn Grad: 11.00 BEBE Cont.VTI: 1.40 AI Pk Chet: 3.63 AI [place]: 2.34 LVOT LVOT Pk Chet: 0.92 LVOT Mn Chet: 0.63 LVOT VTI: 0.24 LVOT Pk Grad: 3.00 LVOT Mn Grad: 2.00 LVOT Diam: 2.10 LVOT Area: 3.46 Diastolic Function MV Pk E: 1.07 MV Pk A: 1.07 E/A: 1.00 E'Medial: 6.09 E/E' Med: 17.60 E' Laterial: 5.77 E/E' Lat: 18.50 Right Ventricle TAPSE (mm): 30.80 TVS' Chet: 12.40 Tricuspid Valve TR Pk Chet: 2.28 TR Pk Grad: 21.00 RA Press: 3.00 RVSP: 24.00 Great Vessels Aorta Sinus of Valsalva: 3.50 2.0-3.5 cm Ao Asc: 3.00 2.1-3.4 cm Pulmonary Valve PV Pk Chet: 1.00 Peak PV Grad: 4.00 Updated in Other Vendor System with Status of Final Tulio Hensley MD electronically signed on 04/04/2023 12:57:15 PM with status of Final
== END ==
LOC: HO.CARD 08:32
PROVIDERS: PCP Family Medicine; Visit Provider Family Medicine
DX: R01.1 Cardiac murmur, unspecified (principal); R06.02 Shortness of breath
CPT/HCPCS: 93306

== ENCOUNTER 2023-09-14 08:35 | Outpatient (REF) | payer MEDICARE, MEDICAID, SELFPAY ==
[2023-09-14 08:53] LABS: MANUAL DIFF FLAG NO
[2023-09-14 09:09] LABS: Basophils Absolute Auto 0.1 X10*3/uL (0.0-0.2); Basophils Percent Auto 0.7 % (0-2); Eosinophils Absolute Auto 0.3 X10*3/uL (0.0-0.4); Eosinophils Percent Auto 4.3 % (0-4); Hematocrit 34.9 % (37.0-47.0); Hemoglobin 11.4 g/dl (12.0-16.0); Imm Gran Abs Auto 0.03 X10*3/uL (0.00-0.03); Imm Gran Pct Auto 0.4 % (0.0-0.4); Lymphocytes Absolute Auto 2.3 X10*3/uL (1.2-4.9); Lymphocytes Percent Auto 30.3 % (20-40); Mean Corpuscular HGB Conc 32.7 g/dl (31.0-35.0); Mean Corpuscular Hemoglobin 28.4 pg (27.0-33.0); Mean Platelet Volume 9.5 fL (9.4-12.3); Monocytes Absolute Auto 0.8 X10*3/uL (0.1-1.2); Neutrophils Absolute Auto 4.1 x10*3/uL (2.0-8.3); Neutrophils Percent Auto 53.3 % (45-73); Platelet Count 321 X10*3/uL (160-400); Red Blood Count 4.01 X10*6/uL (4.20-5.50); Red Cell Distribution Width 15.1 % (11.0-16.0); White Blood Count 7.6 X10*3/uL (4.8-10.8)
[2023-09-14 09:26] LABS: Estimated Average Glucose 123 mg/dL; Hemoglobin A1c % 5.9 % (<6.0)
[2023-09-14 09:39] LABS: Anion Gap 17 (12-20); Blood Urea Nitrogen 24 mg/dL (9-16); Carbon Dioxide 22 mmol/L (22-29); Chloride 105 mmol/L (96-108); Estimated Glomerular Filt Rate 30; Glucose Fasting 114 mg/dL (60-99); Iron 49 mcg/dL (30-160); Percent Iron Saturation 18 % (15-50); Potassium 4.2 mmol/L (3.3-5.1); Sodium 140 mmol/L (135-145); Total Iron Binding Capacity 280 mcg/dL (228-428); Unsaturated Iron Binding 231 ug/dL
== END 2023-09-14 08:36 | disposition home or self-care (01) ==
LOC: HO.LAB 08:35
PROVIDERS: PCP Family Medicine; Visit Provider Family Medicine
DX: I10 Essential (primary) hypertension (principal); E11.9 Type 2 diabetes mellitus without complications; D50.8 Other iron deficiency anemias
CPT/HCPCS: 36415; 80051; 82565; 82947; 83036; 83540; 84520; 85025

== ENCOUNTER 2024-01-24 08:09 | Outpatient (REF) | payer MEDICARE, MEDICAID, SELFPAY ==
[2024-01-24 12:11] LABS: Estimated Average Glucose 126 mg/dL
[2024-01-24 12:29] LABS: Creatinine Urine 80.15 mg/dL; Microalbum/Creatinine Ratio Ur 49.9 ug/mg cr (<30)
[2024-01-24 13:09] LABS: Blood Urea Nitrogen 28 mg/dL (9-16); Estimated Glomerular Filt Rate 29; Glucose Fasting 115 mg/dL (60-99)
[2024-01-24 13:13] LABS: Free T4 (Free Thyroxine) 0.74 ng/dL (0.71-1.85)
== END 2024-01-24 08:10 | disposition home or self-care (01) ==
LOC: HO.10HDL 08:09
PROVIDERS: Visit Provider Family Medicine
DX: E11.9 Type 2 diabetes mellitus without complications (principal); N18.30 Chronic kidney disease, stage 3 unspecified; E03.9 Hypothyroidism, unspecified
CPT/HCPCS: 36415; 82043; 82565; 82570; 82947; 83036; 84439; 84520

== ENCOUNTER 2024-08-29 08:25 | Outpatient (REF) | payer MEDICARE, OTHER, SELFPAY ==
[2024-08-29 08:37] LABS: MANUAL DIFF FLAG NO
[2024-08-29 09:31] LABS: Basophils Absolute Auto 0.1 X10*3/uL (0.0-0.2); Basophils Percent Auto 0.6 % (0-2); Eosinophils Absolute Auto 0.4 X10*3/uL (0.0-0.4); Eosinophils Percent Auto 4.7 % (0-4); Hemoglobin 11.8 g/dl (12.0-16.0); Imm Gran Abs Auto 0.04 X10*3/uL (0.00-0.03); Imm Gran Pct Auto 0.5 % (0.0-0.4); Lymphocytes Absolute Auto 2.3 X10*3/uL (1.2-4.9); Lymphocytes Percent Auto 28.8 % (20-40); Mean Corpuscular HGB Conc 31.9 g/dl (31.0-35.0); Mean Corpuscular Hemoglobin 28.3 pg (27.0-33.0); Mean Corpuscular Volume 88.7 fL (80.0-98.0); Mean Platelet Volume 9.8 fL (9.4-12.3); Monocytes Absolute Auto 1.1 X10*3/uL (0.1-1.2); Neutrophils Absolute Auto 4.3 x10*3/uL (2.0-8.3); Neutrophils Percent Auto 52.4 % (45-73); Platelet Count 368 X10*3/uL (160-400); Red Blood Count 4.17 X10*6/uL (4.20-5.50); Red Cell Distribution Width 15.5 % (11.0-16.0); White Blood Count 8.1 X10*3/uL (4.8-10.8)
[2024-08-29 09:47] LABS: Estimated Average Glucose 126 mg/dL; Hemoglobin A1C 124.2134 umol/L
== END 2024-08-29 08:26 | disposition home or self-care (01) ==
LOC: HO.LAB 08:25
PROVIDERS: PCP Family Medicine; Visit Provider Family Medicine
DX: E11.9 Type 2 diabetes mellitus without complications (principal); E03.9 Hypothyroidism, unspecified; R53.83 Other fatigue
CPT/HCPCS: 36415; 80053; 83036; 83540; 84439; 84443; 85025

== ENCOUNTER 2024-09-04 09:19 | Outpatient (REF) | payer MEDICARE, OTHER, SELFPAY ==
[2024-09-04 12:10] LABS: Alanine Aminotransferase 14 U/L (0-31); Albumin Level 3.9 g/dL (3.5-5.0); Alkaline Phosphatase 99 U/L (39-117); Anion Gap 13 (12-20); Aspartate Amino Transferase 16 U/L (5-31); Blood Urea Nitrogen 20 mg/dL (9-16); Calcium 9.5 mg/dL (8.4-10.2); Carbon Dioxide 24 mmol/L (22-29); Chloride 105 mmol/L (96-108); Estimated Glomerular Filt Rate 32; Glucose Fasting 110 mg/dL (60-99); Iron 60 mcg/dL (30-160); Percent Iron Saturation 19 % (15-50); Potassium 4.2 mmol/L (3.3-5.1); Sodium 138 mmol/L (135-145); Total Iron Binding Capacity 308 mcg/dL (228-428); Total Protein 7.7 g/dL (6.5-8.0); Unsaturated Iron Binding 248 ug/dL
[2024-09-04 12:11] LABS: Free T4 (Free Thyroxine) 0.83 ng/dL (0.71-1.85); Thyroid Stimulating Hormone 7.57 uIU/mL (0.32-4.0)
== END 2024-09-04 09:20 | disposition home or self-care (01) ==
LOC: HO.10HDL 09:19
PROVIDERS: Visit Provider Family Medicine
DX: Z13.89 Encounter for screening for other disorder (principal)
CPT/HCPCS: 36415; 80053; 83540; 84439; 84443

== ENCOUNTER 2025-01-29 08:00 | Outpatient (REF) | payer MEDICARE, OTHER, SELFPAY ==
[2025-01-29 10:46] LABS: Estimated Average Glucose 120 mg/dL; Hemoglobin A1c % 5.8 % (<6.0)
[2025-01-29 11:06] LABS: Anion Gap 13 (12-20); Blood Urea Nitrogen 22 mg/dL (9-16); Carbon Dioxide 25 mmol/L (22-29); Chloride 103 mmol/L (96-108); Estimated Glomerular Filt Rate 37; Glucose Fasting 98 mg/dL (60-99); Sodium 137 mmol/L (135-145)
[2025-01-29 11:22] LABS: Free T4 (Free Thyroxine) 1.05 ng/dL (0.71-1.85); Thyroid Stimulating Hormone 3.47 uIU/mL (0.32-4.0)
== END 2025-01-29 08:01 | disposition home or self-care (01) ==
LOC: HO.10HDL 08:00
PROVIDERS: Visit Provider Family Medicine
DX: E03.9 Hypothyroidism, unspecified (principal); E11.9 Type 2 diabetes mellitus without complications; I10 Essential (primary) hypertension
CPT/HCPCS: 36415; 80051; 82565; 82947; 83036; 84439; 84443; 84520

== ENCOUNTER 2025-02-27 08:26 | Outpatient (REF) | payer MEDICARE, OTHER, SELFPAY | END 2025-02-27 08:27 | disposition home or self-care (01) | LOC: HO.LAB 08:26 | PROVIDERS: PCP Family Medicine; Visit Provider Family Medicine | DX: Z13.89 Encounter for screening for other disorder (principal) ==

== ENCOUNTER 2025-08-03 09:46 | Outpatient (AMB) | payer MEDICARE, MEDICAID, SELFPAY ==
[2025-08-03 09:49] VITALS: BP 130/80; PULSE 80; TEMP 36.4; O2SAT 99; BMI 24.2
--- NOTE | 2025-08-03 09:49 | MHC.PC.OV ---
Vital Signs 08/03/25 09:49 Height 5 ft 4 in Weight 141 lb BMI 24.2 BP 130/80 Blood Pressure Location Rt brachial Position Sitting Pulse 80 Pulse Source Pulse Oximeter Temp 97.6 F Temp Source Temporal Artery Scan Pulse Oximetry (%) 99 Oxygen Delivery Method Room Air Intake Visit Reasons: New Patient / Dr Barrow Allergies amoxicillin (Augmentin) Allergy (Intermediate, Verified 08/03/25 09:52) rash azithromycin (From ZITHROMAX) Allergy (Intermediate, Verified 08/03/25 09:52) RASH, rash, confusion clarithromycin (From BIAXIN) Allergy (Intermediate, Verified 08/03/25 09:52) RASH clavulanic acid (Augmentin) Allergy (Intermediate, Verified 08/03/25 09:52) rash nitrofurantoin (From MACROBID) Allergy (Intermediate, Verified 08/03/25 09:52) ITCHY/RASH Sulfa (Sulfonamide Antibiotics) (SULFA (SULFONAMIDE ANTIBIOTICS)) Allergy (Intermediate, Verified 08/03/25 09:52) Rash trimethoprim (From BACTRIM) Allergy (Intermediate, Verified 08/03/25 09:52) RASH chlorzoxazone (From PARAFON FORTE DSC) Allergy (Unknown, Verified 08/03/25 09:52) UNKNOWN levofloxacin (From LEVAQUIN) Allergy (Unknown, Verified 08/03/25 09:52) UNKNOWN From LEXAPRO Allergy (Unknown, Uncoded 05/28/22 09:30) UNKNOWN Medication List - Last Reconciled 08/03/25 by SHYANN Long blood sugar diagnostic (OneTouch Verio test strips) As directed bupropion HCl XL 150 mg PO QAM escitalopram oxalate 5 mg PO DAILY levothyroxine 150 mcg PO DAILY metoprolol tartrate 25 mg PO BID mirtazapine 15 mg PO BEDTIME Tobacco use date assessed: 08/03/25 Fall risk assessment: No Falls in past year Last assessed Fall Risk: 08/03/25 Dental Screening Dental Screen Date: 08/03/25 Did you have a dental visit in the last 12 months?: No Did you have a dental problem in the last 6 months where you did not have access to dental care?: No HPI HPI Comments History of Present Illness Details The patient is an 79-year-old female with DM, HTN, hypothyroidism, CAD, CHF, cognitive decline, history of kidney stones,DDD, Overactive bladder, MDD/Anxiety and insomnia presenting with diabetes mellitus, anxiety, balance issues, and overactive bladder. The patient manages her diabetes mellitus without medication, checking her blood glucose levels once daily due to insurance constraints. Her glucose levels are generally stable, with occasional elevations during illness. Her last labs in 02/09 showed A1C of 5.8%. Anxiety has been a concern for several months, manifesting as intermittent episodes throughout the day. She is on Bupropion for MDD with good control. She is having insomnia. She was on Trazodone PRN in the past with some relief. Balance issues are present, though she has not fallen. She uses a cane and takes extra care when walking her dog, especially in poor weather. She was seen by PT in the past and given exercises to do. She does them daily. The patient performs pelvic floor exercises for her overactive bladder, as advised by a therapist. She has noticed a reduced appetite, potentially linked to her anxiety. Her history of kidney stones includes multiple stent placements, with no recent urological consultations. She experiences occasional pain, usually in the suprapubic area. She is on Levothyroxine 150mg. Her TSH in January was 3.47. She is on Metoprolol 25mg. Her BP was 130/80. She also takes Claritin OTC and a multivitamin with iron. [facility] Medical History (Updated 08/03/25 @ 11:16 by SHYANN Long) Acute inflammatory neuropathy Anxiety Balance problem CHF (congestive heart failure) CKD (chronic kidney disease) Cognitive decline Constipation Degenerative disc disease Depression Gastritis GERD (gastroesophageal reflux disease) Health care maintenance Hypertension Hypothyroidism Myocardial infarct OA (osteoarthritis) Obstructive sleep apnea Overactive bladder Panic attack Renal stones Thyroid disease Type 2 diabetes mellitus without complication, without long-term current use of insulin UTI (urinary tract infection) Surgical History History of cardiac cath History of esophagogastroduodenoscopy (EGD) History of total right hip replacement Hx of cataract extraction Hx of colonoscopy Hx of cystoscopy Hx of lithotripsy Family History (Updated 08/03/25 @ 09:55 by Anna Ley MA) Mother Heart problem Maternal Aunt Heart problem Maternal Aunt Heart problem Father No problems noted. Other Diabetes Mental health disorder Social History Household Members: None Housing: Condominium Alcohol intake: never Patient Tobacco Use Status: Current everyday Tobacco user Tobacco use type: Cigarette e-Cigarette/Vaping Use: Currently Using service: No Current occupational status: retired Cognitive needs: Yes (C[employer]) Hearing needs: No Vision needs: Yes (Reading glasses) Questionnaire PHQ-9 Over the last 2 weeks, how often have you been bothered by any of the following problems? 1. Little interest or pleasure in doing things: not at all 2. Feeling down, depressed, or hopeless: not at all 3. Trouble falling or staying asleep, or sleeping too much: not at all 4. Feeling tired or having little energy: not at all 5. Poor appetite or overeating: not at all 6. Feeling bad about yourself - or that you are a failure or have let yourself or your family down: not at all 7. Trouble concentrating on things, such as reading the newspaper or watching television: not at all 8. Moving or speaking so slowly that other people could have noticed. Or the opposite - being so fidgety or restless that you have been moving around a lot more than usual: not at all 9. Thoughts that you would be better off or of hurting yourself in some way: not at all Total score: 0 Source: Developed by Drs. Luis Armando Rao, Robyn Lim, Rasta Jernigan and colleagues, with an educational alexandra from [employer]. Thrive Questionnaire Date Thrive assessed: 08/03/25 I am a: Patient Within the past 12 months, did the food you bought not last and you didn't have the money to get more?: Never true Within the past 12 months, did you worry whether your food would run out before you got money to buy more?: Never true Do you have trouble paying for medicines?: No Do you have trouble getting transportation to medical appointments?: No Do you have trouble paying your heating and electricity bill?: No Do you have trouble taking care of your child, family member or friend?: No Do you have trouble with day-to-day activities such as bathing, preparing meals, shopping, managing finances, etc.?: No Are you currently unemployed and looking for a job?: No Are you interested in more education?: No THRIVE Score: 0 AUDIT C Alcohol Use Questionnaire (AUDIT-C) 1. How often do you have a drink containing alcohol?: Monthly or less 2. How many drinks containing alcohol do you have on a typical day when you are drinking?: 1 or 2 3. How often do you have six or more drinks on one occasion?: Less than monthly Total Score: 2 AB-7 AMB Questionnaire AB-7 Date AB - 7 assessed: 08/03/25 Feeling nervous, anxious, or on edge: 1 = Several days (little anxious) Not being able to stop or control worryin = Not at all Worrying too much about different things: 0 = Not at all Trouble relaxin = Not at all Being so restless that it is hard to sit still: 0 = Not at all Becoming easily annoyed or irritable: 0 = Not at all Feeling afraid as if something awful might happen: 0 = Not at all Total AB-7 score (0-4 normal; 5-9 mild; 10-14 moderate; 15-21 severe): 1 Source: Developed by Drs. Luis Armando Rao, Robyn Lim, Rasta Jernigan and colleagues, with an educational alexandra from [employer]. Review of Systems Const Details: CONSTITUTIONAL Fatigue in afternoon HEAD/NECK Negative EAR/NOSE/MOUTH/THROAT Negative RESPIRATORY Intermittent shortness of breath CARDIOVASCULAR Negative GASTROINTESTINAL Reports decreased appetite Intermittent suprapubic pain GENITOURINARY Reports overactive bladder, performs pelvic floor exercises MUSCULOSKELETAL Reports neuropathy with decreased sensation in legs NEUROLOGICAL Reports balance issues, denies falls Uses cane PSYCHIATRIC Depression controlled on Bupropion Reports anxiety episodes, denies previous medication use for anxiety Insomnia Physical exam (Primary Care) Vital Signs: Last Vital Signs Temp 97.6 F 08/03/25 09:49 Pulse 80 08/03/25 09:49 BP 130/80 08/03/25 09:49 Pulse Ox 99 08/03/25 09:49 Oxygen Delivery Method Room Air 08/03/25 09:49 BMI result Body Mass Index 24.2 GENERAL Well developed, Well nourished, in no apparent distress HEENT Head-Normocephalic Eyes- PERRLA, EOMI, Conjuctiva clear, lids WNL Ears- Canals clear, TMs WNL Mouth/Throat-No lesions, no erythema, no exudate Neck- Supple, No lymphadenopathy, thyroid WNL RESPIRATORY Normal I:E, Clear to auscultation CARDIOVASCULAR Regular, rate and rhythm, No murmurs or rubs GASTROINTESTINAL Soft, nontender, normal bowel sounds, no masses MUSCULOSKELETAL Back-Normal ROM, Tender in Lumbar, Tender with motion, Straight leg raise negative, DTR 2+ symmetrical, Gait slow with cane Joints- no pain swelling or deformity NEUROLOGICAL Gait slow with canew PSYCHIATRIC Oriented to person, place and time Mood and affect Anxious Appearance WNL Speech WNL Thought processes WNL Tobacco/Smoking Status: Tobacco use Status Tobacco use date assessed 08/03/25 08/03/25 09:56 Patient Tobacco Use Status Current everyday Tobacco 08/03/25 09:56 Tobacco use type Cigarette 08/03/25 09:56 e-Cigarette/Vaping Use Currently Using 08/03/25 09:56 PHQ-9: PHQ-9 Score PHQ-9: Total score 0 08/03/25 10:33 Thrive Assessment: Date of Thrive Assessment Date Thrive assessed 08/03/25 08/03/25 09:56 Coding Level of Care Code New Pt Tele New Pt Level 4 (81613) Patient Type New Diagnoses Type 2 diabetes mellitus without complication, without long-term current use of insulin E11.9 Cognitive decline R41.89 Psychophysiological insomnia F51.04 Insomnia type: psychophysiologic Overactive bladder N32.81 Renal stones N20.0 Balance problem R26.89 Acquired hypothyroidism E03.9 Hypothyroidism type: acquired Hypertension I10 CHF (congestive heart failure) I50.9 Health care maintenance Z00.00 Time Spent (min) 35 Comment Time spent on chart review, H&P, medication reconciliation, Patient education and orders. Assessment & Plan Assessment & Plan (1) Type 2 diabetes mellitus without complication, without long-term current use of insulin: Comment: Diet controlled Code(s): E11.9 - Type 2 diabetes mellitus without complications Category: Medical Plan: The patient manages her diabetes mellitus without medication, monitoring her blood glucose levels once daily due to insurance limitations. Her glucose levels are generally well-controlled, with occasional elevations during illness. Will check labs. Patient to follow up in 2 months or sooner if symptoms persist or worsen. (2) Cognitive decline: Code(s): R41.89 - Other symptoms and signs involving cognitive functions and awareness Category: Medical Plan: Patient was seen by Neurology in 2021. She feels she has been stable since then. Will monitor (3) Insomnia: Code(s): G47.00 - Insomnia, unspecified Category: Medical Qualifiers: Insomnia type: psychophysiologic Qualified Code(s): F51.04 - Psychophysiologic insomnia Plan: Will try Mirtazapine. This may also help with her appetite. Patient to follow up in 2 months or sooner if symptoms persist or worsen. (4) Overactive bladder: Code(s): N32.81 - Overactive bladder Category: Medical Plan: The patient performs pelvic floor exercises as instructed by a therapist to manage her overactive bladder. (5) Renal stones: Code(s): N20.0 - Calculus of kidney Category: Medical Plan: Will get UA. The patient has a history of kidney stones and has undergone several stent placements without complications. She has not seen a urologist recently and reports occasional pain. (6) Balance problem: Comment: Patient using cane Code(s): R26.89 - Other abnormalities of gait and mobility Category: Medical Plan: Discussed PT for balance. Patient would like to continue to do exercises at home. Patient to follow up in 2 months or sooner if symptoms persist or worsen. (7) Hypothyroidism: Comment: On Levothyroxine 150mcg Code(s): E03.9 - Hypothyroidism, unspecified Category: Medical Qualifiers: Hypothyroidism type: acquired Qualified Code(s): E03.9 - Hypothyroidism, unspecified Plan: Will check TSH. Patient will continue current medications. Will monitor. Patient will follow up in 2 months. (8) Hypertension: Comment: On Metoprolol 25mg/ BP today was 130/80 Code(s): I10 - Essential (primary) hypertension Category: Medical Plan: Controlled. Patient will continue current medications. Will monitor. Patient will follow up in 6 months. (9) CHF (congestive heart failure): Code(s): I50.9 - Heart failure, unspecified Category: Medical Plan: No swelling. Having some mild shortness of breath. Will Monitor. Patient to follow up as needed if symptoms persist or worsen. (10) Health care maintenance: Code(s): Z00.00 - Encounter for general adult medical examination without abnormal findings Category: Medical Plan: Will check labs. Plan During the visit, we discussed the management of the patient's anxiety with escitalopram, which is expected to take one to two weeks to show effects. We also considered mirtazapine for its dual benefits of improving sleep and appetite, to be taken as needed at bedtime. The patient was advised to continue her current regimen for diabetes management and to perform pelvic floor exercises for her overactive bladder. Follow-up was scheduled in two months to review lab results and assess the effectiveness of the new medications. Orders: Orders Complete Blood Count no Diff Today Z00.00 - Encounter for general adult medical examination without abnormal findings TSH reflex Free T4 Today E03.9 - Hypothyroidism, unspecified Comprehensive Met. Panel Today N18.9 - Chronic kidney disease, unspecified Hemoglobin A1c Today E11.9 - Type 2 diabetes mellitus without complications UA CC w/rflx Micro + Cult Today N20.0 - Calculus of kidney Medications: New escitalopram oxalate 5 mg PO DAILY 90 tabs 0RF for anxiety mirtazapine 15 mg PO BEDTIME 60 tabs 0RF for sleep and appetite Patient Instructions: - Take escitalopram once daily for anxiety management. - Use mirtazapine as needed for sleep and appetite improvement. - Continue monitoring blood glucose levels daily. - Have labs done - Perform pelvic floor exercises regularly for overactive bladder management. - Schedule a follow-up appointment in two months.
== END 2025-08-03 10:24 | disposition home or self-care (01) ==
LOC: HO.HMCHD 09:46
PROVIDERS: PCP Family Medicine; Visit Provider Physician Assistant Medical
DX: E11.9 Type 2 diabetes mellitus without complications (principal); I50.9 Heart failure, unspecified; I11.0 Hypertensive heart disease with heart failure; R41.89 Other symptoms and signs involving cognitive functions and awareness; F51.04 Psychophysiologic insomnia; N32.81 Overactive bladder; N20.0 Calculus of kidney; R26.89 Other abnormalities of gait and mobility; E03.9 Hypothyroidism, unspecified

== ENCOUNTER → 2025-08-03 09:46 | Outpatient (BNVA) | payer MEDICARE, OTHER, SELFPAY | PROVIDERS: PCP Family Medicine; Visit Provider Physician Assistant Medical | DX: E11.9 Type 2 diabetes mellitus without complications (principal); R41.89 Other symptoms and signs involving cognitive functions and awareness; F51.04 Psychophysiologic insomnia; N32.81 Overactive bladder; N20.0 Calculus of kidney; R26.89 Other abnormalities of gait and mobility; E03.9 Hypothyroidism, unspecified; I11.0 Hypertensive heart disease with heart failure; I50.9 Heart failure, unspecified; Z79.899 Other long term (current) drug therapy; Z13.30 Encounter for screening examination for mental health and behavioral disorders, unspecified; Z13.39 Encounter for screening examination for other mental health and behavioral disorders | CPT/HCPCS: 96127; 99202 ==

== ENCOUNTER 2025-08-18 07:44 | Outpatient (REF) | payer MEDICARE, MEDICAID, SELFPAY ==
[2025-08-18 11:26] LABS: Hematocrit 34.1 % (37.0-47.0); Hemoglobin 11.4 g/dl (12.0-16.0); Mean Corpuscular HGB Conc 33.4 g/dl (31.0-35.0); Mean Corpuscular Hemoglobin 29.4 pg (27.0-33.0); Mean Corpuscular Volume 87.9 fL (80.0-98.0); NRBC Abs Auto 0.000 X10*3/uL (0.0-0.012); NRBC Pct Auto 0.0 /100WBC (0.0-0.2); Platelet Count 315 X10*3/uL (160-400); Red Blood Count 3.88 X10*6/uL (4.20-5.50); White Blood Count 10.1 X10*3/uL (4.8-10.8)
[2025-08-18 11:27] LABS: Appearance Urine Turbid; Glucose Urine UA Negative (Negative); PH 7.5 (5.0-9.0); Specific Gravity - Urine 1.010 (1.005-1.025); UMIC TRIGGER UACC YES
[2025-08-18 11:47] LABS: UACC Culture Trigger YES
[2025-08-18 12:01] LABS: Hemoglobin A1C 209.6483 umol/L; Total Hemoglobin (HGBA1C) 4999.2226 umol/L
[2025-08-18 12:02] LABS: Alanine Aminotransferase 14 U/L (0-31); Albumin Level 4.0 g/dL (3.5-5.0); Alkaline Phosphatase 100 U/L (39-117); Anion Gap 12 (12-20); Aspartate Amino Transferase 18 U/L (5-31); Blood Urea Nitrogen 21 mg/dL (9-16); Calcium 9.0 mg/dL (8.4-10.2); Carbon Dioxide 26 mmol/L (22-29); Chloride 104 mmol/L (96-108); Estimated Glomerular Filt Rate 31; Potassium 4.1 mmol/L (3.3-5.1); Sodium 138 mmol/L (135-145); Total Protein 7.4 g/dL (6.5-8.0)
[2025-08-18 12:24] LABS: Microalbum/Creatinine Ratio Ur 773.5 ug/mg cr (<30)
[2025-08-18 12:36] LABS: Free T4 (Free Thyroxine) 0.80 ng/dL (0.71-1.85)
== END 2025-08-18 07:45 | disposition home or self-care (01) ==
LOC: HO.10HDL 07:44
PROVIDERS: Visit Provider Physician Assistant Medical
DX: Z00.00 Encounter for general adult medical examination without abnormal findings (principal); E03.9 Hypothyroidism, unspecified; N18.9 Chronic kidney disease, unspecified; E11.9 Type 2 diabetes mellitus without complications; R82.90 Unspecified abnormal findings in urine
CPT/HCPCS: 36415; 80053; 81001; 81003; 82043; 82570; 83036; 84439; 84443; 85027; 87086; 87088; 87186

== ENCOUNTER 2025-10-05 09:48 | Outpatient (AMB) | payer MEDICARE, MEDICAID, SELFPAY ==
--- NOTE | 2025-10-05 09:49 | A.OFFPC_ITS ---
Vital Signs 10/05/25 10:02 Height 5 ft 3 in Weight 138 lb BMI 24.4 BP 168/62 H Blood Pressure Location Lt brachial Position Sitting Respiration 20 Pulse 79 Pulse Source Pulse Oximeter Temp 97.9 F Temp Source Temporal Artery Scan Pulse Oximetry (%) 98 Oxygen Delivery Method Room Air Intake Visit Reasons: 2 Months follow up - see comments Intake Note: Pt not sure of the dose of levothyroxine. She says she takes 50 mg but there is two dosing's in her chart. Organizational Development Director Required: No Accompanied by: Self / Same As Patient Allergies amoxicillin (Augmentin) Allergy (Intermediate, Verified 10/05/25 09:49) rash azithromycin (From ZITHROMAX) Allergy (Intermediate, Verified 10/05/25 09:49) RASH, rash, confusion clarithromycin (From BIAXIN) Allergy (Intermediate, Verified 10/05/25 09:49) RASH clavulanic acid (Augmentin) Allergy (Intermediate, Verified 10/05/25 09:49) rash nitrofurantoin (From MACROBID) Allergy (Intermediate, Verified 10/05/25 09:49) ITCHY/RASH Sulfa (Sulfonamide Antibiotics) (SULFA (SULFONAMIDE ANTIBIOTICS)) Allergy (Intermediate, Verified 10/05/25 09:49) Rash trimethoprim (From BACTRIM) Allergy (Intermediate, Verified 10/05/25 09:49) RASH chlorzoxazone (From PARAFON FORTE DSC) Allergy (Unknown, Verified 10/05/25 09:49) UNKNOWN levofloxacin (From LEVAQUIN) Allergy (Unknown, Verified 10/05/25 09:49) UNKNOWN From LEXAPRO Allergy (Unknown, Uncoded 05/28/22 09:30) UNKNOWN Medication List - Last Reconciled 10/18/25 by SHYANN Long blood sugar diagnostic (OneTouch Verio test strips) As directed bupropion HCl XL 150 mg PO QAM levothyroxine 150 mcg PO DAILY levothyroxine (Levoxyl) 175 mcg PO DAILY metoprolol tartrate 25 mg PO BID trazodone 25 mg (1/2 x 50 mg) PO BEDTIME PRN Tobacco use date assessed: 08/03/25 Dental Screening Dental Screen Date: 08/03/25 HPI HPI Comments History of Present Illness Details History of Present Illness The patient is an 79-year-old female with DM, HTN, hypothyroidism, CAD, CHF, cognitive decline, history of kidney stones,DDD, Overactive bladder, Neuropathy, MDD/Anxiety and insomnia presenting for follow-up for medication management and review of lab results. The patient reports discontinuing escitalopram and mitazapine due to dislike and concerns about side effects. She wishes to resume Trazodone 25 mg at bedtime, which she found effective in the past, and she continues to take Wellbutrin. She denies current depressive feelings but notes tiredness. Recent lab work revealed abnormal thyroid function, indicating hypothyroidism. Her TSH was 12.88. SHe was suppose to increase her Levothyroxine to 175mcg. But the patient has been taking levothyroxine 150 mcg daily instead. The patient complains of significant, draining back pain from arthritis, which makes her feel frustrated and angry with her body. The pain is primarily in her back but sometimes affects her upper back, shoulders, and legs at night. She manages the pain with Salonpas patches and wears a back brace when going out. She forces herself to walk her dog 4-5 times a day to maintain mobility, though she experiences significant stiffness in the morning. Regarding her gastrointestinal health, she experiences alternating episodes of diarrhea and constipation. She manages her symptoms by eating small, bland portions, avoiding spicy foods, and using Dulcolax for constipation. The patient has a history of overactive bladder, and a recent urinary tract infection has resolved with antibiotics. She previously had a gynecological evaluation to rule out a prolapse and subsequently underwent pelvic floor physical therapy. Continuing with pelvic floor exercises has improved her nocturia from every hour to every 2.5 hours. She reports a history of neuropathy in her legs and feels unsteady, making her very self-conscious about falling. She uses a cane and also owns a walker. Medical History: - Hypothyroidism - Depression - Anxiety - Arthritis - Chronic back pain - Overactive bladder, with prior pelvic floor physical therapy - Alternating constipation and diarrhea - Peripheral neuropathy - Hypertension Social History - Functional Status: The patient reports feeling unsteady and is careful to avoid falls. - Assistive Devices: Uses a cane when ou t and has a walker at home. - Transportation: Relies on transportati on services, which limits her ability to bring her walker. - Physical Activity: Walks her dog 4-5 t imes a day to maintain mobility. - Diet: Eats small portions and follows a bland diet, avoiding spicy food. - Social Support: The patient is part of an online support group for overactive bladder and discusses her GI issues with friends who have similar problems. Patient was informed and verbally consented to the use of an ambient scribe for clinic note documentation during this visit. [facility] Medical History (Updated 10/18/25 @ 00:31 by SHYANN Long) Acute inflammatory neuropathy Anxiety Balance problem CHF (congestive heart failure) CKD (chronic kidney disease) Cognitive decline Constipation Degenerative disc disease Depression Gastritis GERD (gastroesophageal reflux disease) Health care maintenance Hypertension Hypothyroidism Myocardial infarct OA (osteoarthritis) Obstructive sleep apnea Overactive bladder Panic attack Renal stones Thyroid disease Type 2 diabetes mellitus without complication, without long-term current use of insulin UTI (urinary tract infection) Surgical History (Updated 10/04/25 @ 16:38 by Carolina Singer) History of cardiac cath History of esophagogastroduodenoscopy (EGD) History of total right hip replacement Hx of cataract extraction Hx of colonoscopy (~04/09/22) Hx of cystoscopy Hx of lithotripsy Family History (Updated 08/03/25 @ 09:55 by Anna Ley MA) Mother Heart problem Maternal Aunt Heart problem Maternal Aunt Heart problem Father No problems noted. Other Diabetes Mental health disorder Social History Household Members: None Housing: Condominium Alcohol intake: never Patient Tobacco Use Status: Current everyday Tobacco user Tobacco use type: Cigarette e-Cigarette/Vaping Use: Currently Using service: No Current occupational status: retired Cognitive needs: Yes (CANE) Hearing needs: No Vision needs: Yes (Reading glasses) Questionnaire Thrive Questionnaire Date Thrive assessed: 08/03/25 AB-7 AMB Questionnaire AB-7 Date AB - 7 assessed: 08/03/25 Source: Developed by Drs. Luis Armando Rao, Robyn Lim, Rasta Jernigan and colleagues, with an educational alexandra from [employer]. Review of Systems Narrative Review of Systems - Constitutional: Reports tiredness and fatigue, which she attributes to pain. - Psychiatric: Denies feeling depressed but reports frustration and anger with her body's limitations. - Musculoskeletal: Reports significant back pain from arthritis, stiffness in the morning, and arthritic pain in one finger. - Neurological: Reports neuropathy in her legs and feels unsteady. - Gastrointestinal: Reports alternating diarrhea and constipation. - Genitourinary: Reports nocturia every 2.5 hours, an improvement from previous hourly awakenings. - Reports her urinary symptoms from a recent infection have resolved after antibiotics. Physical exam (Primary Care) Vital Signs: Last Vital Signs Temp 97.9 F 10/05/25 10:02 Pulse 79 10/05/25 10:02 Resp 20 10/05/25 10:02 BP 168/62 H 10/05/25 10:02 Pulse Ox 98 10/05/25 10:02 Oxygen Delivery Method Room Air 10/05/25 10:02 BMI result Body Mass Index 24.4 Tobacco/Smoking Status: Tobacco use Status Tobacco use date assessed 08/03/25 10/05/25 09:51 Patient Tobacco Use Status Current everyday Tobacco 10/05/25 09:51 Tobacco use type Cigarette 10/05/25 09:51 e-Cigarette/Vaping Use Currently Using 10/05/25 09:51 GENERAL Well developed, Well nourished, in no apparent distress HEENT Head-Normocephalic Neck- Supple, No lymphadenopathy, thyroid WNL RESPIRATORY Normal I:E, Clear to auscultation CARDIOVASCULAR Regular, rate and rhythm, No murmurs or rubs GASTROINTESTINAL Soft, nontender, normal bowel sounds, no masses MUSCULOSKELETAL Joints- no swelling or deformity NEUROLOGICAL Gait slow with cane PSYCHIATRIC Oriented to person, place and time Mood and affect anxious Appearance WNL Speech WNL Thought processes WNL Thrive Assessment: Date of Thrive Assessment Date Thrive assessed 08/03/25 10/05/25 09:51 Coding Level of Care Code Established Pt Complex visit Add On G2211 Patient Type Established Diagnoses Hypertension I10 Acquired hypothyroidism E03.9 Hypothyroidism type: acquired Anxiety F41.9 Depression F32.A Psychophysiological insomnia F51.04 Insomnia type: psychophysiologic Balance problem R26.89 Overactive bladder N32.81 Time Spent (min) 35 Comment Time was spent on lab review, H&P, patient education and orders. Assessment & Plan Assessment & Plan (1) Hypertension: Comment: On Metoprolol 25mg/ BP today was 168/62 and 140/68 Code(s): I10 - Essential (primary) hypertension Category: Medical (2) Hypothyroidism: Comment: TSH was 12.88 Code(s): E03.9 - Hypothyroidism, unspecified Category: Medical Qualifiers: Hypothyroidism type: acquired Qualified Code(s): E03.9 - Hypothyroidism, unspecified (3) Anxiety: Code(s): F41.9 - Anxiety disorder, unspecified Category: Medical (4) Depression: Code(s): F32.A - Depression, unspecified Category: Medical (5) Insomnia: Code(s): G47.00 - Insomnia, unspecified Category: Medical Qualifiers: Insomnia type: psychophysiologic Qualified Code(s): F51.04 - Psychophysiologic insomnia (6) Balance problem: Comment: Patient using cane Code(s): R26.89 - Other abnormalities of gait and mobility Category: Medical (7) Overactive bladder: Code(s): N32.81 - Overactive bladder Category: Medical Plan Plan Patient was informed and verbally consented to the use of an ambient scribe for clinic note documentation during this visit. 1. Hypothyroidism The patient's recent lab work showed that her thyroid is underactive. The levothyroxine dose will be increased from 150 mcg to 175 mcg daily. A repeat blood test to check thyroid levels is ordered for 4-5 weeks from now. 2. Depression And Insomnia The patient has stopped taking escitalopram due to side effects. She will resume taking trazodone 50 mg at bedtime, which she reports was effective for her in the past. A prescription for trazodone will be sent, and refills for her Wellbutrin (bupropion) will be ensured. 3. Alternating Constipation And Diarrhea The patient experiences alternating episodes of constipation and diarrhea. It was explained that MiraLax is a laxative and can worsen diarrhea. A trial of a daily fiber powder, such as Metamucil, was recommended to help bulk the stool and stabilize bowel function. The patient was informed she can obtain this [id number]. 4. Chronic Pain Due To Arthritis The patient reports significant chronic pain from arthritis, primarily in her back, which limits her activity and causes frustration. She will continue her current management with [id number] Salonpas patches and wearing a brace, which she finds helpful. 5. Overactive Bladder The patient's overactive bladder symptoms,? nocturnal frequency, have improved with pelvic floor exercises. She is advised to continue these exercises. 6. Follow-Up Care The patient is scheduled for a follow-up visit in two months to re-evaluate her condition and check the status of her thyroid. The option of a visit over the phone was discussed for urgent matters, especially in cases of inclement wea ther. Discussion Notes I reviewed the patient's recent lab work, which indicated her thyroid is underactive. I explained that this could be contributing to her tiredness and mood symptoms and recommended increasing her levothyroxine dose to 175 mcg. We discussed her decision to stop escitalopram, and I agreed to her request to restart trazodone for sleep, which has worked for her before. I addressed her gastrointestinal symptoms of alternating constipation and diarrhea, explaining the difference between a fiber supplement and a laxative like MiraLax. I recommended she try Metamucil daily to help regulate her bowel movements. I instructed the patient to get a blood test in four to five weeks to monitor her thyroid levels and to return for a follow-up appointment in two months to assess her progress. I also informed her that we can conduct visits over the phone for urgent issues if she is unable to come to the office. Patient Instructions - Increase your thyroid medication, levothyroxine, to the 175 mcg dose daily. - A prescription for Trazodone will be sent to your pharmacy. - Continue taking your Wellbutrin and metoprolol as prescribed. - In about four to five weeks, please go to the lab to have a blood test to check your thyroid levels. - You do not need to fast for this test. - You can mix one packet in water or juice. - Please schedule a follow-up appointment for two months from now. - If you have an urgent issue but cannot come to the office due to bad weather, please call us to see if a visit can be done over the phone. - Be careful to avoid falls, move slowly, and use your cane or walker. - Try taking a fiber powder like Metamucil once a day to help with your constipation and diarrhea. Medications: New bupropion HCl XL 150 mg PO QAM 90 tabs 2RF trazodone 25 mg (1/2 x 50 mg) PO BEDTIME PRN 45 tabs 2RF sleep
[2025-10-05 10:02] VITALS: BP 168/62; PULSE 79; RESP 20; TEMP 36.6; O2SAT 98; BMI 24.4
== END 2025-10-05 10:42 | disposition home or self-care (01) ==
PROVIDERS: PCP Physician Assistant Medical; Visit Provider Physician Assistant Medical
DX: I10 Essential (primary) hypertension (principal); E03.9 Hypothyroidism, unspecified; F41.9 Anxiety disorder, unspecified; F32.A Depression, unspecified; F51.04 Psychophysiologic insomnia; R26.89 Other abnormalities of gait and mobility; N32.81 Overactive bladder

== ENCOUNTER → 2025-10-05 09:48 | Outpatient (BNVA) | payer MEDICARE, MEDICAID, SELFPAY | PROVIDERS: PCP Family Medicine; Visit Provider Physician Assistant Medical | DX: I10 Essential (primary) hypertension (principal); E03.9 Hypothyroidism, unspecified; N32.81 Overactive bladder; R26.89 Other abnormalities of gait and mobility; F32.A Depression, unspecified; F41.9 Anxiety disorder, unspecified; F51.04 Psychophysiologic insomnia; E11.40 Type 2 diabetes mellitus with diabetic neuropathy, unspecified; Z79.890 Hormone replacement therapy; M54.9 Dorsalgia, unspecified; G89.29 Other chronic pain; F17.200 Nicotine dependence, unspecified, uncomplicated | CPT/HCPCS: 99212 ==

== ENCOUNTER 2025-11-17 08:36 | Outpatient (REF) | payer MEDICARE, MEDICAID, SELFPAY | END 2025-11-17 08:37 | disposition home or self-care (01) | LOC: HO.10HDL 08:36 | PROVIDERS: Visit Provider Physician Assistant Medical | DX: E03.9 Hypothyroidism, unspecified (principal) | CPT/HCPCS: 36415; 84443 ==